=== PATIENT | male | born 2000 | race Caucasian/White ===

== ENCOUNTER 2019-05-18 14:11 | Outpatient (CLI) | payer OTHER, SELFPAY ==
--- NOTE | ~2019-05-18 | XR_ITS ---
EXAMINATION: XR ankle RT min 3V DATE: 05/18/2019 14:47 INDICATION: Right ankle pain. TECHNIQUE: 4 views of right ankle were obtained. COMPARISON: None. FINDINGS: Bone alignment is normal. No fracture. There is mild osteoarthritis of talonavicular joint. IMPRESSION: 1. Mild osteoarthritis of talonavicular joint. Reviewed, dictated and finalized at location A.
== END 2019-05-18 14:12 | disposition home or self-care (01) ==
LOC: CHSIMG 14:14
PROVIDERS: PCP Family Medicine; Visit Provider Family Medicine
DX: M25.571 Pain in right ankle and joints of right foot (principal)
CPT/HCPCS: 73610

== ENCOUNTER 2019-08-23 12:54 | Emergency (ER) | payer OTHER, SELFPAY ==
[2019-08-23 13:10] VITALS: BP 155/95; PULSE 80; RESP 19; TEMP 36.7; O2SAT 98
--- NOTE | 2019-08-23 13:19 | ECG_ITS ---
Measurements Intervals [place] Rate: 56 P: -31 ME: 146 QRS: 68 QRSD: 111 T: 66 QT: 426 QTc: 411 Interpretive Statements SINUS BRADYCARDIA WITH SINUS ARRHYTHMIA INTRAVENTRICULAR CONDUCTION DELAY MINIMAL Q WAVES- HIGH LATERAL LEADS BORDERLINE ECG Electronically Signed On 08-23-2019 14:17:24 CDT by Wai Aguirre D.O.
[2019-08-23] MEDS: ONDANSETRON INJ 4 MG/2 ML VIAL IV PUSH (13:30)
[2019-08-23] MEDS: SODIUM CHLORIDE 0.9% IV 1,000 ML 999 ML IV CONT (13:30)
[2019-08-23 13:43] LABS: Hematocrit 42.8 % (40.0-54.0); Hemoglobin 14.3 g/dL (14.0-18.0); Mean Corpuscular HGB Conc 33.4 g/dL (32.0-36.0); Mean Corpuscular Hemoglobin 30.4 pg (27.0-31.0); Mean Corpuscular Volume 91.1 fL (78.0-102.0); Mean Platelet Volume 9.3 fl (8.7-11.0); Platelet Count Result 204 K/mm3 (150-420); Red Cell Distribution Width 12.8 % (11.6-14.4); White Blood Count 12.2 K/mm3 (4.8-10.8)
[2019-08-23 14:00] LABS: Alanine Aminotransferase 26 U/L (16-63); Albumin Level 4.4 g/dL (3.4-5.0); Alkaline Phosphatase 83 U/L (65-260); Anion Gap 14.7 mmol/L (7-16); Aspartate Amino Transferase 20 U/L (15-37); Bilirubin,Total 0.4 mg/dL (0.00-1.00); Blood Urea Nitrogen 11 mg/dL (7-18); Calcium 8.8 mg/dL (8.5-10.1); Carbon Dioxide 25 mmol/L (21-32); Chloride 104 mmol/L (98-108); Creatine Kinase 141 U/L (39-308); Estimated Glomerular Filt Rate > 60; Glucose 90 mg/dL (70-99); Osmolality Calculated 289 mOsm/kg (285-295); Potassium 3.7 mmol/L (3.5-5.1); Sodium 140 mmol/L (136-145)
--- NOTE | 2019-08-23 14:04 | ED.NAVMDI ---
HPI - Nausea/Vomiting/Diarrhea General Chief complaint: Nausea/Vomiting/Diarrhea Stated complaint: nauseated shakey hot and cold chills Source: patient Mode of arrival: ambulatory Limitations: no limitations History of Present Illness HPI Narrative: Sim 18-year-old male presents with nausea vomiting with few episodes of diarrhea that occurred over the last 2 to 3 days was outdoors and had a mosquito bite to his right upper arm that appears to have some redness approximately 3cm in diameter with a central lesion with no drainage is warm nontender, the patient has been feeling nauseated with episodes of vomiting and diarrhea for the last couple days, no fever or chills no shortness of breath no abdominal pain and. MD elicited complaint: nausea, vomiting and diarrhea Onset (ago): day(s) Description of diarrhea: watery Associated abdominal pain: No Related Data Allergies Allergy/AdvReac Type Severity Reaction Status Date / Time No Known Allergies Allergy Verified 02/06/19 16:59 Review of Systems Review of Systems: All systems reviewed & are unremarkable except as noted in HPI and below PMFSH Social History Social History Smoking status: Current every day smoker Alcohol intake: never Substance use: never Exam Const: General: no acute distress and alert Orientation/consciousness: patient oriented x3 HENMT: Head: normal to inspection Eyes: Cornea: corneas normal Pupils: Equal, round and reactive pupils present Neck: Neck: normal visual inspection, no lymphadenopathy and no meningeal signs Chest: Chest palpation & inspection: normal inspection of the chest Resp: Effort & Inspection: normal respiratory effort Auscultation: clear to auscultation bilaterally Cardio: Rate: regular rate and bradycardic Rhythm: regular rhythm GI: GI Palp: Yes Soft to palpation Skin: Wounds: wounds noted ( 3cm patch on his right upper arm it is red and warm to touch) Neuro: General: patient oriented x3 Psych: Mental Status: mental status grossly normal Course Course Emergency Course: reassessment of patient much improved after a Liter of fluids and IV Zofran. And will start p.o. antibiotics for the lesion and redness of his right upper arm. Vital Signs Vital signs: Vital Signs Temperature 36.7 C 08/23/19 13:10 Pulse Rate 80 08/23/19 13:10 Respiratory Rate 19 08/23/19 13:10 Blood Pressure 155/95 H 08/23/19 13:10 Pulse Oximetry 98 08/23/19 13:10 Temperature 36.7 C 08/23/19 13:10 Pulse Rate 80 08/23/19 13:10 Respiratory Rate 19 08/23/19 13:10 Blood Pressure 155/95 H 08/23/19 13:10 Pulse Oximetry 98 08/23/19 13:10 MDM - Nausea/Vomiting/Diarrhea Lab Data Attestation: I reviewed the patient's lab results. Result diagrams: 08/23/19 13:41 08/23/19 13:41 Labs: Lab Results 08/23/19 08/23/19 Range/Units 13:41 13:41 WBC 12.2 H (4.8-10.8) K/mm3 RBC 4.70 (4.70-6.10) M/mm3 Hgb 14.3 (14.0-18.0) g/dL Hct 42.8 (40.0-54.0) % MCV 91.1 (78.0-102.0) fL MCH 30.4 (27.0-31.0) pg MCHC 33.4 (32.0-36.0) g/dL RDW 12.8 (11.6-14.4) % Plt Count 204 (150-420) K/mm3 MPV 9.3 (8.7-11.0) fl Sodium 140 (136-145) mmol/L Potassium 3.7 (3.5-5.1) mmol/L Chloride 104 (98-108) mmol/L Carbon Dioxide 25 (21-32) mmol/L Anion Gap 14.7 (7-16) mmol/L BUN 11 (7-18) mg/dL Creatinine 0.94 (0.70-1.30) mg/dL Estim Creat Clear Calc Not Reportable Estimated GFR > 60 (59 - ) Glucose 90 (70-99) mg/dL Calculated Osmolality 289 (285-295) mOsm/kg Calcium 8.8 (8.5-10.1) mg/dL Total Bilirubin 0.4 (0.00-1.00) mg/dL AST 20 (15-37) U/L ALT 26 (16-63) U/L Alkaline Phosphatase 83 (65-260) U/L Total Creatine Kinase 141 (39-308) U/L Total Protein 8.0 (6.4-8.2) g/dL Albumin 4.4 (3.4-5.0) g/dL ECG Data EKG #1: ECG completion wil
[2019-08-23 14:19] VITALS: RESP 17
== END 2019-08-23 14:21 | disposition home or self-care (01) ==
PROVIDERS: Emergency Provider Emergency Medicine; PCP Family Medicine
DX: K52.9 Noninfective gastroenteritis and colitis, unspecified (principal); L03.113 Cellulitis of right upper limb
CPT/HCPCS: 36415; 80053; 82550; 85027; 93005; 96361; 96374; 99284; J2405; J7030

== ENCOUNTER 2020-01-19 13:38 | Outpatient (CLI) | payer OTHER, SELFPAY ==
[2020-01-21 08:54] LABS: SARS-CoV-2 RNA PCR Negative
== END 2020-01-19 13:39 | disposition home or self-care (01) ==
LOC: CHSLAB 13:42
PROVIDERS: PCP Family Medicine; Visit Provider Family Medicine
DX: Z20.828 Contact with and (suspected) exposure to other viral communicable diseases (principal)
CPT/HCPCS: 87635; C9803; U0003

== ENCOUNTER 2021-08-05 18:07 | Emergency (ER) | payer OTHER, SELFPAY ==
[2021-08-05 18:11] VITALS: BP 137/88; PULSE 80; RESP 18; TEMP 37.2; O2SAT 99
--- NOTE | 2021-08-05 18:50 | ED_ITS ---
HPI - General Adult General Chief complaint: Unspecified Stated complaint: dehydrated, checked for Lyme disease Time Seen by Provider: 08/05/21 18:40 Source: other (Pt was not in the room for H and P.) Related Data Home Medications Medication Instructions Recorded Confirmed No Home Medications 08/05/21 08/05/21 Allergies Allergy/AdvReac Type Severity Reaction Status Date / Time No Known Allergies Allergy Verified 08/05/21 18:28 [facility] Social History Social History Smoking status: Current every day smoker Alcohol intake: never Substance use: never Course Vital Signs Vital signs: Vital Signs Temperature 37.2 C 08/05/21 18:11 Pulse Rate 80 08/05/21 18:11 Respiratory Rate 18 08/05/21 18:11 Blood Pressure 137/88 08/05/21 18:11 Pulse Oximetry 99 08/05/21 18:11 Oxygen Delivery Room Air 08/05/21 18:11 Temperature 37.2 C 08/05/21 18:11 Pulse Rate 80 08/05/21 18:11 Respiratory Rate 18 08/05/21 18:11 Blood Pressure 137/88 08/05/21 18:11 Pulse Oximetry 99 08/05/21 18:11 Oxygen Delivery Room Air 08/05/21 18:11 Medical Decision Making Vital Signs Vital Signs: Vital Signs Temperature 37.2 C 08/05/21 18:11 Pulse Rate 80 08/05/21 18:11 Respiratory Rate 18 08/05/21 18:11 Blood Pressure 137/88 08/05/21 18:11 Pulse Oximetry 99 08/05/21 18:11 Oxygen Delivery Room Air 08/05/21 18:11 Temperature 37.2 C 08/05/21 18:11 Pulse Rate 80 08/05/21 18:11 Respiratory Rate 18 08/05/21 18:11 Blood Pressure 137/88 08/05/21 18:11 Pulse Oximetry 99 08/05/21 18:11 Oxygen Delivery Room Air 08/05/21 18:11 Discharge Plan Discharge Patient Disposition: Left Without Being Seen Prescriptions: No Action No Home Medications Follow-up/Referrals: Miguel Duffy MD [Primary Care Provider] - Time of Disposition: 18:52
--- NOTE | 2021-08-05 18:50 | PC.NURSE ---
PT LEAVES AMA DUE TO SERVICE DOG BARKING INCESSANTLY IN ER. PT REPORTS HE DOES NOT WANT TO STAY, HE IS NOT FEELING WELL AND DOES NOT WANT TO LISTEN TO IT.
== END 2021-08-05 18:52 | disposition left against medical advice (07) ==
LOC: CHSED 18:10
PROVIDERS: Emergency Provider Emergency Medicine; PCP Family Medicine
DX: E86.0 Dehydration (principal)
CPT/HCPCS: 99199